=== PATIENT | female | born 1990 | race Caucasian/White ===

== ENCOUNTER 2018-02-02 13:14 | Inpatient (IN) ==
--- NOTE | 2018-02-02 13:18 | Emergency Department Note ---
Disposition Clinical Impression: Pyelonephritis, Weakness UTI (urinary tract infection) Qualifiers: Urinary tract infection type: acute pyelonephritis Qualified Code(s): N10 - Acute pyelonephritis Vomiting Qualifiers: Vomiting type: unspecified Vomiting Intractability: non-intractable Nausea presence: with nausea Qualified Code(s): R11.2 - Nausea with vomiting, unspecified Disposition: Admitted As Inpatient Condition: Fair Referrals: NONE,PCP [Primary Care Provider] - Forms: ED Satisfaction Letter Time of Disposition: 15:30 General Adult HPI - General Chief complaint: ED Nausea/Vomiting/Diarrhea Stated complaint: vomiting, uti symptoms Time Seen by Provider: 02/02/18 13:22 Source: patient, EMS Mode of arrival: EMS Limitations: no limitations Nursing Notes Reviewed: Yes Vital Signs Reviewed: Yes - History of Present Illness HPI Narrative: Patient presents with the primary complaint of "cannot stop puking". She relates this has been going on for 2 days and she is been vomiting is frequently is about every 30 minutes. She states this is been through the night as well. She has had a feeling of chills but no definite fever. She states she did have diarrhea yesterday morning but none since. She reports abdominal cramping and some pain in the suprapubic region and right lower quadrant. She has pains from here that radiated to both flanks. She is concern for urinary tract infection as she has been having frequency and burning for 2-3 days. With the persistent vomiting she has had some generalized malaise, weakness and dizziness. She concurrently notes that she has been exposed to "lots" of people who have had recent vomiting and diarrhea. She denies any concerned of food borne illness or recent antibiotics or travel. She has cough or shortness of breath. She relates that she is concerned that she is getting dehydrated or that her "kidneys are shutting down ". She denies any history of previous renal problems. She has a normal last menstrual period of 2-3 weeks ago states she has no concern for . She has had a cholecystectomy but denies any other abdominal procedures. Onset (ago): day(s) (2) Location: back, abdomen Radiation: back Pain Severity: moderate Quality: burning, aching, constant Consistency: constant Improves with: nothing Worsens with: movement (Vomiting) Associated symptoms: Reports: fever/chills (Chills), loss of appetite, malaise, nausea/vomiting, weakness. Denies: confusion, chest pain, cough, diaphoresis, headaches, rash, seizure, shortness of breath, syncope Treatments Prior to Arrival: none - Related Data Home Medications Medication Instructions Recorded Confirmed Donepezil HCl [Aricept] 10 mg PO HS 02/02/18 02/02/18 Ferrous Sulfate [Iron] 325 mg PO DAILY 02/02/18 02/02/18 Metoprolol [Lopressor] 100 mg PO BID 02/02/18 02/02/18 Simvastatin [Zocor] 40 mg PO HS 02/02/18 02/02/18 Triamterene/HCTZ 75/50mg [Maxzide] 1 each PO DAILY 02/02/18 02/02/18 hydroCHLOROthiazide 25 mg PO DAILY 02/02/18 02/02/18 [Hydrochlorothiazide] Previous Rx's Medication Instructions Recorded Metoclopramide [Reglan] 10 mg PO PRN PRN #30 tablet 10/16/17 Allergies Allergy/AdvReac Type Severity Reaction Status Date / Time cephalexin [From Keflex] Allergy Anaphylaxis Verified 10/22/17 22:01 Penicillins [PCN] Allergy Anaphylaxis Verified 10/22/17 22:01 tramadol [From Ultram] Allergy Anaphylaxis Verified 10/22/17 22:01 All systems ED: reviewed and negative except as stated. Past Medical History - Past Medical History Attestation: Yes The following information was validated with the patient. Source: patient, old records reviewed, nursing notes reviewed Medical history: Reports: asthma, other (Opiate dependence) Surgical history: Reports: cholecystectomy Psychiatric history: Reports: anxiety WEAVER HAND history: Reports: no WEAVER HAND history : 5 Para: 5 Ab: 0 - Social History Smoking Status: Current every day smoker Smokeless Tobacco Status: No Alcohol use: Reports: none Drug use: Reports: opiates (Currently on suboxone), marijuana Physical Exam - General Limitations: no limitations General appearance: alert, anxious, in distress (Tearful) - Head Head exam: atraumatic, normocephalic, normal inspection - Eye Eye exam: Present: normal appearance, PERRL, EOMI. Absent: scleral icterus, conjunctival injection - ENT ENT exam: normal exam, mucous membranes dry - Neck Neck exam: Present: normal inspection, full ROM, trachea midline - Chest Chest inspection: Present: normal inspection, symmetric chest wall rise - Respiratory Respiratory exam: Present: normal lung sounds bilaterally. Absent: respiratory distress, wheezes, prolonged expiratory phase - Cardiovascular Cardiovascular exam: Present: regular rate, normal rhythm, normal heart sounds - Abdominal Exam Abdominal exam: Present: soft, normal bowel sounds. Absent: distention, guarding, rebound, rigidity, psoas sign, obturator sign, heel tap sign, Villagran' s sign, Rovsing's sign, tenderness at McBurney's Point Abdominal tenderness: Present: suprapubic, mild - Extremities Exam Extremities exam: Present: normal inspection, full ROM, normal capillary refill. Absent: tenderness, pedal edema - Expanded Lower Extremity Exam Neurovascular/Tendon exam: Present: normal capillary refill. Absent: motor deficit, sensory deficit, tendon deficit Gait: observed and normal (Limited ambulation from the EMS cart to the triage chair.) - Back Exam Back exam: Present: normal inspection, full ROM, CVA tenderness (R), CVA tenderness (L). Absent: tenderness - Neurological Exam Neurological exam: Present: alert, oriented X3 - Psychiatric Psychiatric exam: Present: agitated, anxious - Skin Skin exam: Present: warm, dry, intact, normal color. Absent: cyanosis, diaphoresis, pallor Course Course Narrative: 1530: I have discussed care with the patient and all specimen with Dr. Mancini. She is significantly dry on her urinalysis with significant ketones and protein. She does have evidence for urinary tract infection with urinary symptoms and flank pain. I feel she will need continued hydration and IV antibiotic treatment. Verbal orders have been obtained for her observation period Vital Signs Temperature 98.5 F 02/02/18 13:23 Pulse Rate 94 02/02/18 13:23 Respiratory Rate 16 02/02/18 13:23 Blood Pressure 146/96 02/02/18 13:23 O2 Sat by Pulse Oximetry 96 02/02/18 13:23 Temperature 98.5 F 02/02/18 13:23 Pulse Rate 101 02/02/18 15:03 Respiratory Rate 16 02/02/18 15:03 Blood Pressure 145/103 02/02/18 15:03 O2 Sat by Pulse Oximetry 96 02/02/18 15:03 Oxygen Delivery Oxygen Delivery Room Air Medical Decision Making - Medical Records Medical records reviewed: Yes I reviewed the patient's medical records. - Lab Data Lab results reviewed: Yes I reviewed the patient's lab results. Result diagrams: 02/02/18 13:58 02/02/18 13:58 Lab Results 02/02/18 02/02/18 02/02/18 Range/Units 13:44 13:44 13:44 WBC (4.3-11.1) K/mcL RBC (3.82-4.97) M/mcL Hgb (11.5-15.4) g/dL Hct (35.3-44.9) % MCV (83.0-100.0) fL MCH (28.0-33.3) pg MCHC (31.6-35.5) g/dL RDW (11.5-14.5) % Plt Count (140-400) K/mcL MPV (9.4-12.4) fL Immature Gran % (0-4) % Seg Neutrophils % % Lymphocytes % % Monocytes % % Eosinophils % % Basophils % % Neutrophils # (1.6-8.9) K/mcL Lymphocytes # (0.6-4.6) K/mcL Monocytes # (0.0-1.3) K/mcL Eosinophils # (0.0-0.6) K/mcL Basophils # (0.0-0.2) K/mcL Sodium (136-145) mEq/L Potassium (3.5-5.1) mEq/L Chloride (98-107) mEq/L Carbon Dioxide (23-29) mEq/L BUN (6-20) mg/dL Creatinine (0.60-1.20) mg/dL Est GFR ( Amer) (> 60) Est GFR (Non-Af Amer) (> 60) BUN/Creatinine Ratio (6-26) Glucose (70-105) mg/dL Calculated Osmolality (280-300) Lactic Acid (0.5-2.2) mmol/L Calcium (8.6-10.3) mg/dL Total Bilirubin (0.3-1.0) mg/dL Direct Bilirubin (0.0-0.2) mg/dL Indirect Bilirubin (0.0-1.2) mg/dL AST (13-39) Units/L ALT (7-52) Units/L Alkaline Phosphatase (34-104) Units/L Serum Total Protein (6.4-8.9) g/dL Albumin (3.5-5.7) g/dL Globulin (2.4-3.5) g/dL Albumin/Globulin Ratio (1.1-2.2) Urine Color Yellow (Yellow) Urine Clarity Cloudy A (Clear) Urine pH 5.5 (5.0-8.0) pH Units Ur Specific [place] >= 1.030 H (1.010-1.025) Urine Protein >=300 H (Neg-Trace) mg/dL Urine Glucose (UA) Normal (Normal) mg/dL Urine Ketones >=160 H (Negative) mg/dL Urine Blood Moderate H (Negative) Urine Nitrite Positive A (Negative) Urine Bilirubin Negative (Negative) Urine Urobilinogen Normal (Normal) mg/dL Ur Leukocyte Esterase Negative (Negative) Urine Microscopic RBC 5-15 H (0-3) per hpf Urine Microscopic WBC 3-5 H (0-3) per hpf Ur Squamous Epith Cells Many H (None-Few) per lpf Urine Bacteria Many H (None-Few) per hpf Urine Mucus Many H (Few) Ur Culture Indicated? NO. A (NO) Urine Test Negative (Negative) Urine Opiates Screen Negative (Nzmbgl=137) ng/mL Ur Oxycodone Screen Negative (Cutoff= 100) ng/mL Ur Barbiturates Screen Negative (Mtakmf=943) ng/mL Ur Phencyclidine Scrn Negative (Cutoff=25) ng/mL Ur Amphetamines Screen Negative (Tviius=8590) ng/mL U Benzodiazepines Scrn Negative (Urdfqr=054) ng/mL Urine Cocaine Screen Negative (Cutoff= 300) ng/mL U Marijuana (THC) Screen Positive H (Cutoff = 50) ng/mL Ur Drug Screen Interp See Below 02/02/18 02/02/18 02/02/18 Range/Units 13:58 13:58 13:58 WBC 14.8 H (4.3-11.1) K/mcL RBC 5.03 H (3.82-4.97) M/mcL Hgb 14.6 (11.5-15.4) g/dL Hct 43.4 (35.3-44.9) % MCV 86.3 (83.0-100.0) fL MCH 29.0 (28.0-33.3) pg MCHC 33.6 (31.6-35.5) g/dL RDW 13.7 (11.5-14.5) % Plt Count 365 (140-400) K/mcL MPV 9.2 L (9.4-12.4) fL Immature Gran % 0.3 (0-4) % Seg Neutrophils % 86.6 % Lymphocytes % 10.7 % Monocytes % 2.2 % Eosinophils % 0.0 % Basophils % 0.2 % Neutrophils # 12.8 H (1.6-8.9) K/mcL Lymphocytes # 1.6 (0.6-4.6) K/mcL Monocytes # 0.3 (0.0-1.3) K/mcL Eosinophils # 0.0 (0.0-0.6) K/mcL Basophils # 0.0 (0.0-0.2) K/mcL Sodium 138 (136-145) mEq/L Potassium 3.8 (3.5-5.1) mEq/L Chloride 100 (98-107) mEq/L Carbon Dioxide 24 (23-29) mEq/L BUN 11 (6-20) mg/dL Creatinine 0.57 L (0.60-1.20) mg/dL Est GFR ( Amer) > 60 (> 60) Est GFR (Non-Af Amer) > 60 (> 60) BUN/Creatinine Ratio 19 (6-26) Glucose 130 H (70-105) mg/dL Calculated Osmolality 287 (280-300) Lactic Acid 1.1 (0.5-2.2) mmol/L Calcium 10.4 H (8.6-10.3) mg/dL Total Bilirubin 0.5 (0.3-1.0) mg/dL Direct Bilirubin 0.0 (0.0-0.2) mg/dL Indirect Bilirubin 0.5 (0.0-1.2) mg/dL AST 13 (13-39) Units/L ALT 8 (7-52) Units/L Alkaline Phosphatase 79 (34-104) Units/L Serum Total Protein 8.8 (6.4-8.9) g/dL Albumin 5.4 (3.5-5.7) g/dL Globulin 3.4 (2.4-3.5) g/dL Albumin/Globulin Ratio 1.6 (1.1-2.2) Urine Color (Yellow) Urine Clarity (Clear) Urine pH (5.0-8.0) pH Units Ur Specific [place] (1.010-1.025) Urine Protein (Neg-Trace) mg/dL Urine Glucose (UA) (Normal) mg/dL Urine Ketones (Negative) mg/dL Urine Blood (Negative) Urine Nitrite (Negative) Urine Bilirubin (Negative) Urine Urobilinogen (Normal) mg/dL Ur Leukocyte Esterase (Negative) Urine Microscopic RBC (0-3) per hpf Urine Microscopic WBC (0-3) per hpf Ur Squamous Epith Cells (None-Few) per lpf Urine Bacteria (None-Few) per hpf Urine Mucus (Few) Ur Culture Indicated? (NO) Urine Test (Negative) Urine Opiates Screen (Ldklxy=544) ng/mL Ur Oxycodone Screen (Cutoff= 100) ng/mL Ur Barbiturates Screen (Alvyhh=375) ng/mL Ur Phencyclidine Scrn (Cutoff=25) ng/mL Ur Amphetamines Screen (Yxkdww=2398) ng/mL U Benzodiazepines Scrn (Yrupak=664) ng/mL Urine Cocaine Screen (Cutoff= 300) ng/mL U Marijuana (THC) Screen (Cutoff = 50) ng/mL Ur Drug Screen Interp
[2018-02-02] MEDS ORDERED: Ketorolac 30 MG/ML VIAL IVP ONE (13:28)
[2018-02-02] MEDS ORDERED: Ondansetron 4 MG/2 ML VIAL IVP ONE (13:28)
[2018-02-02] MEDS ORDERED: 0.9 % Sodium Chloride 1,000 ML IVC ONE (13:28)
[2018-02-02] MEDS ORDERED: 0.9 % Sodium Chloride 1,000 ML IVC SCH (13:30)
[2018-02-02 13:59] LABS: Bilirubin,Urine Negative (Negative); Blood,Urine Moderate (Negative); Clarity,Urine Cloudy (Clear); Color,Urine Yellow (Yellow); Glucose,Urine (UA) Normal (Normal); Ketones,Urine >=160 mg/dL (Negative); Leukocyte Esterase,Urine Negative (Negative); Nitrite,Urine Positive (Negative); PH,Urine 5.5 pH Units (5.0-8.0); Protein,Urine >=300 mg/dL (Neg-Trace); Specific Gravity,Urine >= 1.030 (1.010-1.025); Urobilinogen,Urine Normal (Normal)
[2018-02-02 14:08] LABS: Basophils % 0.2 %; Hematocrit 43.4 % (35.3-44.9); Hemoglobin 14.6 g/dL (11.5-15.4); Immature Granulocytes % 0.3 % (0-4); Lymphocytes # 1.6 K/mcL (0.6-4.6); Lymphocytes % 10.7 %; Mean Corpuscular HGB Conc 33.6 g/dL (31.6-35.5); Mean Corpuscular Volume 86.3 fL (83.0-100.0); Mean Platelet Volume 9.2 fL (9.4-12.4); Monocytes # 0.3 K/mcL (0.0-1.3); Monocytes % 2.2 %; Neutrophils # 12.8 K/mcL (1.6-8.9); Platelet Count 365 K/mcL (140-400); Red Blood Count 5.03 M/mcL (3.82-4.97); Red Cell Distribution Width 13.7 % (11.5-14.5); Segmented Neutrophils % 86.6 %
[2018-02-02 14:08] LABS: Amphetamine Screen,Urine Negative ng/mL (Cutoff=1000); Barbiturate Screen,Urine Negative ng/mL (Cutoff=200); Benzodiazepines Screen,Urine Negative ng/mL (Cutoff=200); Cannabinoid Screen,Urine Positive ng/mL (Cutoff = 50); Cocaine Screen,Urine Negative ng/mL (Cutoff= 300); Opiate Screen,Urine Negative ng/mL (Cutoff=300); Phencyclidine Screen,Urine Negative ng/mL (Cutoff=25)
[2018-02-02 14:16] LABS: Bacteria,Urine Many per hpf (None-Few); Mucus,Urine Many (Few); Squamous Epithelial Cell,Urine Many per lpf (None-Few)
[2018-02-02 14:24] LABS: Alanine Aminotransferase 8 Units/L (7-52); Albumin 5.4 g/dL (3.5-5.7); Albumin/Globulin Ratio 1.6 (1.1-2.2); Alkaline Phosphatase 79 Units/L (34-104); Aspartate Amino Transferase 13 Units/L (13-39); BUN/Creatinine Ratio 19 (6-26); Bilirubin,Indirect 0.5 mg/dL (0.0-1.2); Bilirubin,Total 0.5 mg/dL (0.3-1.0); Blood Urea Nitrogen 11 mg/dL (6-20); Calcium 10.4 mg/dL (8.6-10.3); Carbon Dioxide 24 mEq/L (23-29); Chloride 100 mEq/L (98-107); Globulin 3.4 g/dL (2.4-3.5); Glucose 130 mg/dL (70-105); Osmolality,Calculated 287 (280-300); Potassium 3.8 mEq/L (3.5-5.1); Sodium 138 mEq/L (136-145); Total Protein 8.8 g/dL (6.4-8.9); eGFR For Non-African Americans > 60 (> 60)
[2018-02-02] MEDS ORDERED: *HR* Promethazine 25 MG/ML VIAL IVP ONE ×2 (16:52→17:39)
[2018-02-02] MEDS ORDERED: Naloxone 0.4 MG/ML INJ IVP PRN (17:39)
[2018-02-02] MEDS ORDERED: Promethazine 12.5 MG in 0.9 % Sodium Chloride 50 ML IVPB PRN (17:39)
[2018-02-02] MEDS ORDERED: Ondansetron ODT 4 MG TAB.RAPDIS SL ONE (17:39)
[2018-02-02] MEDS: 0.9 % Sodium Chloride 1,000 ML IVC SCH (18:09)
[2018-02-03] MEDS: 0.9 % Sodium Chloride 1,000 ML IVC SCH ×3 (00:05→11:42)
[2018-02-03] MEDS: *HR* Promethazine 25 MG/ML VIAL IVP PRN ×4 (00:14→17:55)
[2018-02-03] MEDS: Ibuprofen 400 MG TABLET PO PRN ×3 (00:18→21:29)
[2018-02-03] MEDS: Ondansetron 4 MG/2 ML VIAL IVP PRN ×3 (03:37→14:31)
[2018-02-03] MEDS ORDERED: *HR* Buprenorphine HCl 8 MG TAB.SUBL SL SCH (09:00)
--- NOTE | 2018-02-03 11:55 | Internal Med History&Physical ---
Date of Encounter: 02/03/18 Time of Encounter: 11:25 Assessment and Plan (1) Vomiting Current visit: Yes Status: Acute Probable acute gastroenteritis. IV fluids have been ordered and antiemetics will be given as needed. Qualifiers: Vomiting type: unspecified Vomiting Intractability: non-intractable Nausea presence: with nausea Qualified Code(s): R11.2 - Nausea with vomiting, unspecified (2) UTI (urinary tract infection) Current visit: Yes Status: Acute Equivocal evidence. She had significant bacteria but many squamous epithelial cells in urine sample. IV Cipro was ordered through emergency room. Qualifiers: Urinary tract infection type: acute pyelonephritis Qualified Code(s): N10 - Acute pyelonephritis Internal Medicine - H&P: HPI Chief complaint: Vomiting Admitted From: Emergency Dept Plans for Post Hospital Care: Home History of present illness: Ms. Rivas is a 27 year old female who came to emergency room complaining of abdominal discomfort and diarrhea onset the evening of January 30. The following day she had multiple episodes of vomiting with occasional bright red blood noted. The vomiting and abdominal discomfort persisted so February 01 she came to emergency room for evaluation. She was felt to have UTI and was admitted to [facility] floor for ongoing care needs. She states diarrhea has remained resolved but she still has abdominal pain and occasional vomiting. Denies previous similar episodes. She had cholecystectomy June 2012. She has had elevated LFTs during in the past. She denies hepatitis. She denies disorders of her exocrine pancreas. Past Med Surg Social Fam HX - Past Medical History Medical history: asthma, other Additional medical history: PT REFUSES TO GIVE PMH Psychiatric history: anxiety - Past Surgical History Surgical History: cholecystectomy Additional surgical history: wisdom teeth removed (2013) - Social History Smoking Status: Current every day smoker Smokeless Tobacco Status: No Alcohol use: none Drug use: opiates, marijuana - Family History Mother Family Member Ethnicity: Non- Living Status: Still Living Hx Family Cardiac Disorders: Yes (hypertension) Hx Family Respiratory Disorders: No Hx Family Cancer: Yes Hx Family GI Disorders: No Hx Family Endocrine Disorder: No Hx Family Neuromuscular Disorders: No Hx Family Neurologic Disorders: No Hx Family HEENT Disorders: No Hx Family Autoimmune Disorders: No Internal Medicine - H&P: Meds Buprenorphine HCl [Subutex] 12 mg SL DAILY 02/02/18 [History] DiphenhydraMINE [Benadryl] 25 mg PO HS 02/02/18 [History] 3 Allergy/AdvReac Type Severity Reaction Status Date / Time cephalexin [From Keflex] Allergy Anaphylaxis Verified 10/22/17 22:01 Penicillins [PCN] Allergy Anaphylaxis Verified 10/22/17 22:01 tramadol [From Ultram] Allergy Anaphylaxis Verified 10/22/17 22:01 All Systems PM: A 10-system review of systems was performed and is negative for pertinent findings except as documented above in the HPI. Review of systems: Gen.: She states her weight has been stable following delivery of her last child 3 months ago. Cardiovascular: She denies hypertension NH heart failure angina DVT or pulmonary embolism Respiratory: She has smoked since age 15 up to 2 packs per day. She claims a diagnosis of asthma. GI: As per history of present illness : She denies hematuria dysuria or kidney stones Neurologic: She has history of migraine headaches. She has had syncope in the past. She denies seizures. Endocrine: She denies diabetes thyroid disease or hyperlipidemia. Hematology/oncology: She denies blood disorders cancers or anemia Psychiatric: She has history of anxiety and depression and took medication from approximately age [age]. [place] skeletal: She denies arthritis gout or other bone joint or muscle disorders. - Constitutional Vitals: Temp Pulse Resp BP Pulse Ox 98.7 F 85 16 148/98 98 02/03/18 06:56 02/03/18 06:56 02/03/18 06:56 02/03/18 06:56 02/03/18 06:56 Exam: Gen.: She is a well-developed well-nourished female who appears in mild discomfort lying in bed HEENT: Head is atraumatic and normocephalic. Eyes: EOMI. There is no scleral icterus. Mouth: Mucosa is moist. Neck: Supple and nontender. There is no thyromegaly or adenopathy noted. Heart: Regular without murmurs gallops or ectopics Lungs: No wheezes or crackles are heard. Back: She has tenderness to flank percussion bilaterally Abdomen: Bowel sounds are diminished. There is minimal tenderness to palpation. No masses or guarding are noted. Extremities: There is no cyanosis edema or clubbing noted. Dorsalis pedis and posterior tibial pulses are 1-2 over 2 bilaterally. Neurologic: Mental status: She is talkative and a good historian. Cranial nerves: Smile is symmetric. Forehead wrinkles bilaterally. Tongue protrudes midline. EOMI. Motor: There is no pronator drift. Cerebellar: Finger to nose intact bilaterally. Skin: Warm and dry Internal Med - H&P Results - Labs CBC & Chem 7: 02/02/18 13:58 02/02/18 13:58
[2018-02-03] MEDS: 0.45 % Sodium Chloride w/KCl 20 MEQ/1,000 ML MLS IVC SCH (13:09)
[2018-02-03] MEDS: *HR* Buprenorphine HCl 8 MG TAB.SUBL SL SCH (17:44)
[2018-02-03] MEDS: Ondansetron ODT 4 MG TAB.RAPDIS SL PRN (21:29)
[2018-02-04] MEDS: *HR* Promethazine 25 MG/ML VIAL IVP PRN ×2 (00:02→10:12)
[2018-02-04] MEDS: 0.45 % Sodium Chloride w/KCl 20 MEQ/1,000 ML MLS IVC SCH ×2 (00:07→08:45)
[2018-02-04] MEDS: Ondansetron ODT 4 MG TAB.RAPDIS SL PRN ×2 (04:10→08:46)
[2018-02-04 06:46] LABS: Basophils % 0.4 %; Eosinophils # 0.3 K/mcL (0.0-0.6); Eosinophils % 3.4 %; Hematocrit 36.5 % (35.3-44.9); Hemoglobin 12.1 g/dL (11.5-15.4); Immature Granulocytes % 0.2 % (0-4); Lymphocytes # 3.6 K/mcL (0.6-4.6); Lymphocytes % 38.6 %; Mean Corpuscular HGB Conc 33.2 g/dL (31.6-35.5); Mean Corpuscular Hemoglobin 28.8 pg (28.0-33.3); Mean Corpuscular Volume 86.9 fL (83.0-100.0); Monocytes # 0.8 K/mcL (0.0-1.3); Monocytes % 8.5 %; Neutrophils # 4.6 K/mcL (1.6-8.9); Platelet Count 260 K/mcL (140-400); Red Cell Distribution Width 13.5 % (11.5-14.5); Segmented Neutrophils % 48.9 %
[2018-02-04 07:00] LABS: Alanine Aminotransferase 6 Units/L (7-52); Albumin 4.1 g/dL (3.5-5.7); Albumin/Globulin Ratio 1.6 (1.1-2.2); Alkaline Phosphatase 55 Units/L (34-104); Aspartate Amino Transferase 11 Units/L (13-39); BUN/Creatinine Ratio 24 (6-26); Bilirubin,Total 0.6 mg/dL (0.3-1.0); Blood Urea Nitrogen 11 mg/dL (6-20); Calcium 9.3 mg/dL (8.6-10.3); Carbon Dioxide 26 mEq/L (23-29); Chloride 101 mEq/L (98-107); Globulin 2.5 g/dL (2.4-3.5); Glucose 88 mg/dL (70-105); Lipase 13 Units/L (11-82); Magnesium 1.7 mg/dL (1.6-2.6); Osmolality,Calculated 279 (280-300); Potassium 3.5 mEq/L (3.5-5.1); Sodium 135 mEq/L (136-145); Total Protein 6.6 g/dL (6.4-8.9); eGFR For Non-African Americans > 60 (> 60)
[2018-02-04] MEDS: *HR* Buprenorphine HCl 8 MG TAB.SUBL SL SCH (08:46)
[2018-02-04] MEDS: Ibuprofen 400 MG TABLET PO PRN (10:12)
--- NOTE | 2018-02-04 14:55 | Discharge Summary ---
Date of Encounter: 02/04/18 Time of Encounter: 14:45 - Discharge Diagnosis (1) Acute gastroenteritis Priority: Primary Status: Acute (2) UTI (urinary tract infection) Priority: Secondary Status: Acute Qualifiers: Urinary tract infection type: acute pyelonephritis Qualified Code(s): N10 - Acute pyelonephritis Hospital course: Ms. Rivas is a 27 year old female who came to emergency room complaining of abdominal discomfort and diarrhea onset the evening of January 30. The following day she had multiple episodes of vomiting with occasional bright red blood noted. The vomiting and abdominal discomfort persisted so February 02 she came to emergency room for evaluation. She was felt to have UTI and was admitted to [facility] for ongoing care needs. Initial orders were written by the emergency room physician. I saw her on February 03 and performed a history and physical. IV fluids were ordered and anti-emetics were given as needed. Her vomiting lessened but had not resolved by time of discharge. WBC normalized to 9.4 with resolution of left shift by February 04. Diet was advanced to regular and she felt improved when I saw her on February 04 and wished to be discharged home. I encouraged her to find a local PCP. She will continue to follow with her substance abuse physician in the [place] area as directed. - Time Spent with Patient Total time spent providing and/or coordinating discharge services: - Discharge Medications Prescriptions: Ondansetron ODT [Zofran ODT] 4 mg SL Q4HR PRN #12 tab.rapdis PRN Reason: Nausea Home Medications: Buprenorphine HCl [Subutex] 12 mg SL DAILY 02/02/18 [History] DiphenhydraMINE [Benadryl] 25 mg PO HS 02/02/18 [History] Ondansetron ODT [Zofran ODT] 4 mg SL Q4HR PRN #12 tab.rapdis 02/04/18 [Rx] Allergies/Adverse Reactions: 3 Allergy/AdvReac Type Severity Reaction Status Date / Time cephalexin [From Keflex] Allergy Anaphylaxis Verified 10/22/17 22:01 Penicillins [PCN] Allergy Anaphylaxis Verified 10/22/17 22:01 tramadol [From Ultram] Allergy Anaphylaxis Verified 10/22/17 22:01 Date of admission: 02/03/18 17:25 Primary care physician: PCP NONE - Constitutional Vitals: Temp Pulse Resp BP Pulse Ox 98.4 F 108 14 127/84 97 02/04/18 11:47 02/04/18 11:47 02/04/18 11:47 02/04/18 11:47 02/04/18 11:47 - Patient Status Disposition: Home, Self-Care Condition: Fair - Discharge Instructions Follow Up With: NONE,PCP [Primary Care Provider] - 1 week - Diet and Activity Activity: resume usual activities as tolerated Diet: advance to your usual diet
[2018-02-04 15:10] VITALS: BP 118/83
== END 2018-02-04 16:29 | disposition home or self-care (01) | DRG 690 ==
LOC: EMEROOPIK 13:14 → INPPIK 13:14
PROVIDERS: ADMIT Internal Medicine; ATTEND Internal Medicine

== ENCOUNTER 2018-02-08 19:36 | Observation (INO) ==
[2018-02-08] MEDS ORDERED: 0.9 % Sodium Chloride 1,000 ML IVC ONE (19:45)
--- NOTE | 2018-02-08 19:46 | Emergency Department Note ---
Disposition Clinical Impression: Acute drug withdrawal syndrome, Nausea & vomiting Disposition: Home, Self-Care Condition: Good Time of Disposition: 22:08 General Adult HPI - General Chief complaint: ED General Medical Stated complaint: NAUSEA AND VOMITING Time Seen by Provider: 02/08/18 19:42 Source: patient Mode of arrival: ambulatory Limitations: no limitations Nursing Notes Reviewed: Yes Vital Signs Reviewed: Yes - History of Present Illness HPI Narrative: Patient presents with nausea and vomiting. She is out of her Subutex. She was admitted to the hospital for urinary tract infection and was on Subutex while she was here. She did not have anymore when she got home and she has been vomiting since then. She denies any difficulty urinating. There is been no fevers or chills. Onset (ago): day(s) (4) Location: abdomen Radiation: non-radiation Pain Scale: 0 Consistency: constant Improves with: nothing Worsens with: nothing Associated symptoms: Reports: nausea/vomiting - Related Data Home Medications Medication Instructions Recorded Confirmed Buprenorphine HCl [Subutex] 12 mg SL DAILY 02/02/18 02/08/18 DiphenhydraMINE [Benadryl] 25 mg PO HS 02/02/18 02/08/18 Previous Rx's Medication Instructions Recorded Ondansetron ODT [Zofran ODT] 4 mg SL Q4HR PRN #12 tab.rapdis 02/04/18 Ondansetron ODT [Zofran ODT] 4 mg SL Q4HR PRN #15 tab.rapdis 02/08/18 Allergies Allergy/AdvReac Type Severity Reaction Status Date / Time cephalexin [From Keflex] Allergy Anaphylaxis Verified 02/08/18 19:39 Penicillins [PCN] Allergy Anaphylaxis Verified 02/08/18 19:39 tramadol [From Ultram] Allergy Anaphylaxis Verified 02/08/18 19:39 All systems ED: reviewed and negative except as stated. Review of Systems: As Per HPI Constitutional: Denies: fever, chills, weakness, weight change Eyes: Denies: eye pain, eye discharge, vision change ENT ED: Denies: ear pain, throat pain, dental pain, hearing loss, epistaxis, congestion, dysphagia Cardiovascular: Denies: chest pain, palpitations, dyspnea on exertion, edema, syncope Respiratory: Denies: cough, dyspnea, wheezes, hemoptysis, stridor Gastrointestinal: Reports: as per HPI, nausea, vomiting Genitourinary: Denies: dysuria, frequency, hematuria, discharge Musculoskeletal: Denies: back pain, neck pain, arthralgia, myalgia Integumentary: Denies: rash, abrasion, lesions Neurological: Denies: headache, weakness, numbness, paresthesias, confusion, abnormal gait, vertigo Psychiatric: Denies: anxiety, depression, suicidal thoughts, homicidal thoughts , auditory hallucinations, visual hallucinations Endocrine: Denies: fatigue Hematological/Lymphatic: Denies: easy bleeding, easy bruising Allergic/Immunologic: Denies: facial swelling, urticaria Past Medical History - Past Medical History Attestation: Yes The following information was validated with the patient. Source: patient, nursing notes reviewed Medical history: Reports: asthma, other Surgical history: Reports: cholecystectomy Psychiatric history: Reports: anxiety [employer] history: Reports: no [employer] history - Social History Smoking Status: Current every day smoker Smokeless Tobacco Status: No Alcohol use: Reports: none Drug use: Reports: opiates, marijuana Physical Exam - General Limitations: no limitations General appearance: alert, in no apparent distress - Head Head exam: atraumatic, normocephalic, normal inspection - Eye Eye exam: Present: normal appearance, PERRL, EOMI - ENT ENT exam: normal exam, normal oropharynx, mucous membranes moist - Neck Neck exam: Present: normal inspection, full ROM, trachea midline - Chest Chest inspection: Present: normal inspection, symmetric chest wall rise - Respiratory Respiratory exam: Present: normal lung sounds bilaterally - Cardiovascular Cardiovascular exam: Present: regular rate, normal rhythm, normal heart sounds - Abdominal Exam Abdominal exam: Present: soft, Non-Tender, normal bowel sounds. Absent: tenderness, distention, guarding, rebound, rigidity - Extremities Exam Extremities exam: Present: normal inspection - Back Exam Back exam: Present: normal inspection - Neurological Exam Neurological exam: Present: alert, oriented X3 - Psychiatric Psychiatric exam: Present: normal affect, normal mood - Skin Skin exam: Present: warm, dry, intact Course Vital Signs Temperature 97.7 F 02/08/18 19:41 Pulse Rate 63 02/08/18 19:41 Respiratory Rate 20 02/08/18 19:41 Blood Pressure 170/109 02/08/18 19:41 O2 Sat by Pulse Oximetry 98 02/08/18 19:41 Temperature 99.2 F 02/09/18 06:42 Pulse Rate 85 02/09/18 06:42 Respiratory Rate 14 02/09/18 06:42 Blood Pressure 151/92 02/09/18 06:42 O2 Sat by Pulse Oximetry 100 02/09/18 06:42 Oxygen Delivery Oxygen Delivery Room Air Medical Decision Making - MDM Narrative Medical decision making narrative: I reviewed the patient's medication list In spite of the patient's nausea and vomiting at home she has normal laboratory studies and is not dehydrated. She is given an additional liter of fluid plus Phenergan and Zofran and she is really not vomited much since that time however she insists she needs to stay in the hospital. The case was - Lab Data Lab results reviewed: Yes I reviewed the patient's lab results. Result diagrams: 02/09/18 05:57 02/08/18 20:13 Lab Results 02/08/18 02/08/18 02/08/18 Range/Units 20:13 20:13 21:27 WBC 15.2 H D (4.3-11.1) K/mcL RBC 4.59 (3.82-4.97) M/mcL Hgb 13.7 D (11.5-15.4) g/dL Hct 40.2 (35.3-44.9) % MCV 87.6 (83.0-100.0) fL MCH 29.8 (28.0-33.3) pg MCHC 34.1 (31.6-35.5) g/dL RDW 13.3 (11.5-14.5) % Plt Count 345 (140-400) K/mcL MPV 9.2 L (9.4-12.4) fL Immature Gran % 0.4 (0-4) % Seg Neutrophils % 87.3 % Lymphocytes % 9.9 % Monocytes % 1.8 % Eosinophils % 0.2 % Basophils % 0.4 % Neutrophils # 13.3 H (1.6-8.9) K/mcL Lymphocytes # 1.5 (0.6-4.6) K/mcL Monocytes # 0.3 (0.0-1.3) K/mcL Eosinophils # 0.0 (0.0-0.6) K/mcL Basophils # 0.1 (0.0-0.2) K/mcL Sodium 137 (136-145) mEq/L Potassium 3.8 (3.5-5.1) mEq/L Chloride 103 (98-107) mEq/L Carbon Dioxide 24 (23-29) mEq/L BUN 9 (6-20) mg/dL Creatinine 0.49 L (0.60-1.20) mg/dL Est GFR ( Amer) > 60 (> 60) Est GFR (Non-Af Amer) > 60 (> 60) BUN/Creatinine Ratio 18 (6-26) Glucose 144 H (70-105) mg/dL Calculated Osmolality 285 (280-300) Calcium 9.7 (8.6-10.3) mg/dL Urine Color Yellow (Yellow) Urine Clarity Clear (Clear) Urine pH 7.5 (5.0-8.0) pH Units Ur Specific [place] 1.025 (1.010-1.025) Urine Protein 30 H (Neg-Trace) mg/dL Urine Glucose (UA) Normal (Normal) mg/dL Urine Ketones Negative (Negative) mg/dL Urine Blood Negative (Negative) Urine Nitrite Negative (Negative) Urine Bilirubin Negative (Negative) Urine Urobilinogen Normal (Normal) mg/dL Ur Leukocyte Esterase Negative (Negative) Urine Microscopic WBC 0-3 (0-3) per hpf Ur Squamous Epith Cells Few (None-Few) per lpf Ur Renal Epithelial Cell Few (None-Few) per hpf Urine Mucus Few (Few) Ur Culture Indicated? NO (NO) Urine Test (Negative) 02/08/18 Range/Units 21:27 WBC (4.3-11.1) K/mcL RBC (3.82-4.97) M/mcL Hgb (11.5-15.4) g/dL Hct (35.3-44.9) % MCV (83.0-100.0) fL MCH (28.0-33.3) pg MCHC (31.6-35.5) g/dL RDW (11.5-14.5) % Plt Count (140-400) K/mcL MPV (9.4-12.4) fL Immature Gran % (0-4) % Seg Neutrophils % % Lymphocytes % % Monocytes % % Eosinophils % % Basophils % % Neutrophils # (1.6-8.9) K/mcL Lymphocytes # (0.6-4.6) K/mcL Monocytes # (0.0-1.3) K/mcL Eosinophils # (0.0-0.6) K/mcL Basophils # (0.0-0.2) K/mcL Sodium (136-145) mEq/L Potassium (3.5-5.1) mEq/L Chloride (98-107) mEq/L Carbon Dioxide (23-29) mEq/L BUN (6-20) mg/dL Creatinine (0.60-1.20) mg/dL Est GFR ( Amer) (> 60) Est GFR (Non-Af Amer) (> 60) BUN/Creatinine Ratio (6-26) Glucose (70-105) mg/dL Calculated Osmolality (280-300) Calcium (8.6-10.3) mg/dL Urine Color (Yellow) Urine Clarity (Clear) Urine pH (5.0-8.0) pH Units Ur Specific Crapo (1.010-1.025) Urine Protein (Neg-Trace) mg/dL Urine Glucose (UA) (Normal) mg/dL Urine Ketones (Negative) mg/dL Urine Blood (Negative) Urine Nitrite (Negative) Urine Bilirubin (Negative) Urine Urobilinogen (Normal) mg/dL Ur Leukocyte Esterase (Negative) Urine Microscopic WBC (0-3) per hpf Ur Squamous Epith Cells (None-Few) per lpf Ur Renal Epithelial Cell (None-Few) per hpf Urine Mucus (Few) Ur Culture Indicated? (NO) Urine Test Negative (Negative)
[2018-02-08] MEDS ORDERED: *HR* Promethazine 25 MG/ML VIAL IM ONE (20:00)
[2018-02-08 20:21] LABS: Basophils # 0.1 K/mcL (0.0-0.2); Basophils % 0.4 %; Eosinophils % 0.2 %; Hematocrit 40.2 % (35.3-44.9); Hemoglobin 13.7 g/dL (11.5-15.4); Immature Granulocytes % 0.4 % (0-4); Lymphocytes # 1.5 K/mcL (0.6-4.6); Lymphocytes % 9.9 %; Mean Corpuscular HGB Conc 34.1 g/dL (31.6-35.5); Mean Corpuscular Hemoglobin 29.8 pg (28.0-33.3); Mean Corpuscular Volume 87.6 fL (83.0-100.0); Mean Platelet Volume 9.2 fL (9.4-12.4); Monocytes # 0.3 K/mcL (0.0-1.3); Monocytes % 1.8 %; Neutrophils # 13.3 K/mcL (1.6-8.9); Platelet Count 345 K/mcL (140-400); Red Blood Count 4.59 M/mcL (3.82-4.97); Red Cell Distribution Width 13.3 % (11.5-14.5); Segmented Neutrophils % 87.3 %
[2018-02-08 20:55] LABS: BUN/Creatinine Ratio 18 (6-26); Blood Urea Nitrogen 9 mg/dL (6-20); Calcium 9.7 mg/dL (8.6-10.3); Carbon Dioxide 24 mEq/L (23-29); Chloride 103 mEq/L (98-107); Glucose 144 mg/dL (70-105); Osmolality,Calculated 285 (280-300); Potassium 3.8 mEq/L (3.5-5.1); Sodium 137 mEq/L (136-145); eGFR For Non-African Americans > 60 (> 60)
[2018-02-08] MEDS ORDERED: Ondansetron ODT 4 MG TAB.RAPDIS SL ONE (21:14)
[2018-02-08 21:32] LABS: Bilirubin,Urine Negative (Negative); Blood,Urine Negative (Negative); Clarity,Urine Clear (Clear); Color,Urine Yellow (Yellow); Glucose,Urine (UA) Normal (Normal); Ketones,Urine Negative (Negative); Leukocyte Esterase,Urine Negative (Negative); Nitrite,Urine Negative (Negative); PH,Urine 7.5 pH Units (5.0-8.0); Protein,Urine 30 mg/dL (Neg-Trace); Specific Gravity,Urine 1.025 (1.010-1.025); Urobilinogen,Urine Normal (Normal)
[2018-02-08 21:39] LABS: Mucus,Urine Few (Few); Renal Epithelial Cells,Urine Few per hpf (None-Few); Squamous Epithelial Cell,Urine Few per lpf (None-Few); WBC,Urine 0-3 per hpf (0-3)
[2018-02-08] MEDS: *HR* Promethazine 25 MG/ML VIAL IVP ONE (21:47)
[2018-02-09] MEDS ORDERED: *HR* Promethazine 25 MG/ML VIAL IVP ONE (00:06)
[2018-02-09] MEDS: *HR* Promethazine 25 MG/ML VIAL IVP ONE (00:15)
[2018-02-09] MEDS ORDERED: Ondansetron 4 MG/2 ML VIAL IVP PRN (00:48)
[2018-02-09] MEDS ORDERED: Naloxone 0.4 MG/ML INJ IVP PRN (00:48)
[2018-02-09] MEDS ORDERED: *HR* Promethazine 25 MG/ML VIAL IVP PRN (00:48)
[2018-02-09] MEDS ORDERED: 0.9 % Sodium Chloride 1,000 ML IVC SCH (00:48)
[2018-02-09 06:58] LABS: Basophils # 0.1 K/mcL (0.0-0.2); Basophils % 0.3 %; Hematocrit 42.8 % (35.3-44.9); Hemoglobin 14.4 g/dL (11.5-15.4); Immature Granulocytes % 0.6 % (0-4); Lymphocytes # 2.2 K/mcL (0.6-4.6); Lymphocytes % 11.8 %; Mean Corpuscular HGB Conc 33.6 g/dL (31.6-35.5); Mean Corpuscular Hemoglobin 29.2 pg (28.0-33.3); Mean Corpuscular Volume 86.8 fL (83.0-100.0); Mean Platelet Volume 9.7 fL (9.4-12.4); Monocytes # 0.7 K/mcL (0.0-1.3); Monocytes % 3.8 %; Platelet Count 378 K/mcL (140-400); Red Blood Count 4.93 M/mcL (3.82-4.97); Red Cell Distribution Width 13.3 % (11.5-14.5); Segmented Neutrophils % 83.5 %
[2018-02-09 07:02] LABS: Neutrophils # 15.5 K/mcL (1.6-8.9)
[2018-02-09 07:58] LABS: BUN/Creatinine Ratio 11 (6-26); Blood Urea Nitrogen 5 mg/dL (6-20); Calcium 9.7 mg/dL (8.6-10.3); Carbon Dioxide 23 mEq/L (23-29); Chloride 101 mEq/L (98-107); Glucose 125 mg/dL (70-105); Osmolality,Calculated 287 (280-300); Potassium 3.5 mEq/L (3.5-5.1); Sodium 139 mEq/L (136-145); eGFR For Non-African Americans > 60 (> 60)
[2018-02-09] MEDS: *HR* Promethazine 25 MG/ML VIAL IVP PRN ×4 (09:52→22:09)
--- NOTE | 2018-02-09 11:28 | Internal Med History&Physical ---
Date of Encounter: 02/09/18 Time of Encounter: 10:50 Assessment and Plan (1) Nausea & vomiting Current visit: Yes Status: Acute Suspect due to Subutex withdrawal with possible superimposed acute gastroenteritis. IV fluids and antiemetics will be ordered. Further workup will be done as needed. I spoke with the [facility] ) where she obtains Subutex. They report her last visit was January 20 with return date required February 03. She was hospitalized that day at [facility] and could not return for the necessary visit. The visit was rescheduled for February 08 but she returned to [facility] emergency room that day. Facility agreed that discharge summaries could be faxed from previous visit and present visit and patient could be seen for follow-up 02/11/2018 and receive ongoing prescription for Subutex. Qualifiers: Vomiting type: unspecified Qualified Code(s): R11.2 - Nausea with vomiting , unspecified Internal Medicine - H&P: HPI Chief complaint: Vomiting Admitted From: Emergency Dept Plans for Post Hospital Care: Home History of present illness: Ms. Rivas is a 27 year old female who came to emergency room stating she had onset of vomiting February 06. She had been discharged from [facility] February 04 after admission for vomiting. She was felt to possibly have acute gastroenteritis. WBC and left shift normalized by day of discharge. She states upon discharge she had no ongoing supply of Subutex that she obtains from a [facility] clinic. She reports getting a 2 week supply at each follow-up visit but was unable to make her last scheduled appointment. The appointment was rescheduled for February 08 but she felt unable to make the trip because of vomiting. She came to emergency room instead and was admitted to [facility] floor for ongoing care needs. Past Med Surg Social Fam HX - Past Medical History Medical history: asthma, other Additional medical history: PER PT ON THIS DATE STATES WAS TAKING PAIN PILLS FOR YEARS AND THEN WANTED TO STOP TAKING PAIN PILLS AND WAS PUT ON SUBUTEX OVER A YEAR AGO. Psychiatric history: anxiety - Past Surgical History Surgical History: cholecystectomy Additional surgical history: wisdom teeth removed (2013) - Social History Smoking Status: Current every day smoker Smokeless Tobacco Status: No Alcohol use: none Drug use: opiates, marijuana - Family History Mother Family Member Ethnicity: Non- Living Status: Still Living Hx Family Cardiac Disorders: Yes (hypertension) Hx Family Respiratory Disorders: No Hx Family Cancer: Yes Hx Family GI Disorders: No Hx Family Endocrine Disorder: No Hx Family Neuromuscular Disorders: No Hx Family Neurologic Disorders: No Hx Family HEENT Disorders: No Hx Family Autoimmune Disorders: No Internal Medicine - H&P: Meds Buprenorphine HCl [Subutex] 12 mg SL DAILY 02/02/18 [History] DiphenhydraMINE [Benadryl] 25 mg PO HS 02/02/18 [History] Ondansetron ODT [Zofran ODT] 4 mg SL Q4HR PRN #12 tab.rapdis 02/04/18 [Rx] Ondansetron ODT [Zofran ODT] 4 mg SL Q4HR PRN #15 tab.rapdis 02/08/18 [Rx] 3 Allergy/AdvReac Type Severity Reaction Status Date / Time cephalexin [From Keflex] Allergy Anaphylaxis Verified 02/08/18 19:39 Penicillins [PCN] Allergy Anaphylaxis Verified 02/08/18 19:39 tramadol [From Ultram] Allergy Anaphylaxis Verified 02/08/18 19:39 All Systems PM: A 10-system review of systems was performed and is negative for pertinent findings except as documented above in the HPI. Review of systems: Gen.: She states her weight has been stable following delivery of her last child 3 months ago. Cardiovascular: She denies hypertension MT heart failure angina DVT or pulmonary embolism Respiratory: She has smoked since age 15 up to 2 packs per day. She claims a diagnosis of asthma. GI: She had cholecystectomy June 2012 and elevated LFTs during her a few months ago. She denies hepatitis. She denies other disorders of her liver or exocrine pancreas. : She denies hematuria dysuria or kidney stones Neurologic: She has history of migraine headaches. She has had syncope in the past. She denies seizures. Endocrine: She denies diabetes thyroid disease or hyperlipidemia. Hematology/oncology: She denies blood disorders cancers or anemia Psychiatric: She has history of anxiety and depression and took medication from approximately age [age]. [place] skeletal: She denies arthritis gout or other bone joint or muscle disorders. - Constitutional Vitals: Temp Pulse Resp BP Pulse Ox 99.2 F 85 14 151/92 100 02/09/18 06:42 02/09/18 06:42 02/09/18 06:42 02/09/18 06:42 02/09/18 06:42 Exam: Gen.: She is a well-developed well-nourished female lying in bed who appears nauseated and uncomfortable HEENT: Head is atraumatic and normocephalic. Eyes: EOMI. There is no scleral icterus. Mouth: Mucosa is moist. Neck: Supple and nontender. There is no thyromegaly or adenopathy noted. Heart: Regular without murmurs gallops or ectopics Lungs: No wheezes or crackles are heard. Abdomen: Bowel sounds are markedly diminished. The abdomen has minimal tenderness to palpation. Extremities: There is no cyanosis edema or clubbing noted. Dorsalis pedis and posterior tibial pulses are 1-2 over 2 bilaterally. Neurologic: Mental status: She is able to answer questions appropriately but appears uncomfortable. Cranial nerves: Smile is symmetric. Forehead wrinkles bilaterally. Tongue protrudes midline. EOMI. Motor: There is no pronator drift. Cerebellar: Finger to nose is intact bilaterally. Skin: Warm and dry. She has multiple tattoos. Internal Med - H&P Results - Labs CBC & Chem 7: 02/09/18 05:57 02/09/18 05:57 Labs: Short CBC 02/09/18 Range/Units 05:57 WBC 18.6 H (4.3-11.1) K/mcL Hgb 14.4 (11.5-15.4) g/dL Hct 42.8 (35.3-44.9) % Plt Count 378 (140-400) K/mcL Neutrophils # 15.5 H (1.6-8.9) K/mcL BMP 02/09/18 05:57 Sodium 139 Potassium 3.5 Chloride 101 Carbon Dioxide 23 BUN 5 L Creatinine 0.46 L Glucose 125 H Calcium 9.7 - Impressions ITS Impressions Chest X-Ray 02/09/18 07:23 IMPRESSION: No acute cardiopulmonary process. D/ / 02/09/2018 08:49:35 Jone Longoria MD / jennifer Interpreting Provider: Jone Longoria MD
[2018-02-09] MEDS: 0.9 % Sodium Chloride w KCl 20 MEQ/1,000 ML MLS IVC SCH (13:08)
[2018-02-09] MEDS: Ondansetron 4 MG/2 ML VIAL IVP PRN (19:05)
[2018-02-09] MEDS: *HR* Buprenorphine HCl 8 MG TAB.SUBL SL SCH (19:39)
[2018-02-10] MEDS: 0.9 % Sodium Chloride w KCl 20 MEQ/1,000 ML MLS IVC SCH ×3 (01:54→20:11)
[2018-02-10] MEDS: Ondansetron 4 MG/2 ML VIAL IVP PRN ×4 (03:17→19:40)
[2018-02-10] MEDS: *HR* Promethazine 25 MG/ML VIAL IVP PRN ×4 (04:48→22:00)
[2018-02-10] MEDS: Ibuprofen 600 MG TABLET PO PRN ×2 (04:48→16:57)
[2018-02-10 06:48] LABS: Basophils # 0.1 K/mcL (0.0-0.2); Basophils % 0.5 %; Eosinophils # 0.2 K/mcL (0.0-0.6); Eosinophils % 1.4 %; Hematocrit 39.2 % (35.3-44.9); Hemoglobin 13.2 g/dL (11.5-15.4); Immature Granulocytes % 0.4 % (0-4); Lymphocytes # 4.3 K/mcL (0.6-4.6); Lymphocytes % 32.3 %; Mean Corpuscular HGB Conc 33.7 g/dL (31.6-35.5); Mean Corpuscular Hemoglobin 29.3 pg (28.0-33.3); Mean Corpuscular Volume 86.9 fL (83.0-100.0); Mean Platelet Volume 9.6 fL (9.4-12.4); Monocytes # 1.1 K/mcL (0.0-1.3); Monocytes % 8.1 %; Neutrophils # 7.6 K/mcL (1.6-8.9); Platelet Count 350 K/mcL (140-400); Red Blood Count 4.51 M/mcL (3.82-4.97); Red Cell Distribution Width 13.5 % (11.5-14.5); Segmented Neutrophils % 57.3 %
[2018-02-10 07:15] LABS: BUN/Creatinine Ratio 18 (6-26); Blood Urea Nitrogen 9 mg/dL (6-20); Calcium 9.4 mg/dL (8.6-10.3); Carbon Dioxide 25 mEq/L (23-29); Chloride 106 mEq/L (98-107); Glucose 100 mg/dL (70-105); Osmolality,Calculated 291 (280-300); Potassium 3.5 mEq/L (3.5-5.1); Sodium 141 mEq/L (136-145); eGFR For Non-African Americans > 60 (> 60)
[2018-02-10] MEDS: *HR* Buprenorphine HCl 8 MG TAB.SUBL SL SCH (08:22)
--- NOTE | 2018-02-10 11:12 | Internal Med Progress Note ---
Date of Encounter: 02/10/18 Time of Encounter: 11:00 - Assessment and plan (1) Nausea & vomiting Current Visit: Yes Status: Acute Assessment and plan: February 10. Continue IV fluids and anti-emetics. She will likely be discharged tomorrow and a follow-up with the [place] branch of her recovery Center on 02/12/2018 at 2 PM. Qualifiers: Vomiting type: unspecified Qualified Code(s): R11.2 - Nausea with vomiting , unspecified - Subjective Interval history: February 10. She has no new complaints and feels better. - Constitutional Vitals: Temp Pulse Resp BP Pulse Ox 98.4 F 88 16 127/79 97 02/10/18 06:40 02/10/18 06:40 02/10/18 06:40 02/10/18 06:40 02/10/18 06:40 Exam: She is resting comfortably in bed and appears in no acute distress. Her affect is overall cheerful. I reviewed her medications and lab results. Internal Medicine: Result - Labs CBC & Chem 7: 02/10/18 05:37 02/10/18 05:37 Labs: Short CBC 02/10/18 Range/Units 05:37 WBC 13.3 H (4.3-11.1) K/mcL Hgb 13.2 (11.5-15.4) g/dL Hct 39.2 (35.3-44.9) % Plt Count 350 (140-400) K/mcL Neutrophils # 7.6 (1.6-8.9) K/mcL BMP 02/10/18 05:37 Sodium 141 Potassium 3.5 Chloride 106 Carbon Dioxide 25 BUN 9 Creatinine 0.51 L Glucose 100 Calcium 9.4 - Impressions Impressions Chest X-Ray 02/09/18 07:23 IMPRESSION: No acute cardiopulmonary process. D/ / 02/09/2018 08:49:35 Jone Longoria MD / jennifer Interpreting Provider: Jone Longoria MD Consult Discharge Plan - Plan Referrals: NONE,PCP [Primary Care Provider] - 1 week
[2018-02-11] MEDS: Ondansetron 4 MG/2 ML VIAL IVP PRN ×2 (02:05→06:27)
[2018-02-11] MEDS: *HR* Promethazine 25 MG/ML VIAL IVP PRN ×2 (03:43→08:57)
[2018-02-11 06:22] LABS: Basophils % 0.5 %; Eosinophils # 0.5 K/mcL (0.0-0.6); Eosinophils % 6.6 %; Immature Granulocytes % 0.2 % (0-4); Lymphocytes # 3.4 K/mcL (0.6-4.6); Lymphocytes % 42.4 %; Mean Corpuscular HGB Conc 33.3 g/dL (31.6-35.5); Mean Corpuscular Hemoglobin 29.3 pg (28.0-33.3); Mean Platelet Volume 9.3 fL (9.4-12.4); Monocytes # 0.6 K/mcL (0.0-1.3); Monocytes % 7.5 %; Neutrophils # 3.5 K/mcL (1.6-8.9); Platelet Count 259 K/mcL (140-400); Red Blood Count 3.75 M/mcL (3.82-4.97); Red Cell Distribution Width 13.4 % (11.5-14.5); Segmented Neutrophils % 42.8 %
[2018-02-11 06:38] VITALS: BP 122/76
[2018-02-11] MEDS: 0.9 % Sodium Chloride w KCl 20 MEQ/1,000 ML MLS IVC SCH (06:41)
[2018-02-11] MEDS: *HR* Buprenorphine HCl 8 MG TAB.SUBL SL SCH (08:56)
--- NOTE | 2018-02-11 09:48 | Discharge Summary ---
Orders not resulted at time of discharge: Pending orders 02/09/18 08:55 Culture,Blood [BC] Routine Date of Encounter: 02/11/18 Time of Encounter: 09:40 - Discharge Diagnosis (1) Nausea & vomiting Priority: Primary Status: Acute Qualifiers: Vomiting type: unspecified Qualified Code(s): R11.2 - Nausea with vomiting , unspecified Hospital course: Ms. Rivas is a 27 year old female who came to emergency room stating she had onset of vomiting February 06. She had been discharged from [facility] February 04 after admission for vomiting. She was felt to possibly have acute gastroenteritis. WBC and left shift normalized by day of discharge. She states upon discharge she had no ongoing supply of Subutex that she obtains from a [facility] recovery clinic. She reports getting a 2 week supply at each follow-up visit but was unable to make her last scheduled appointment. The appointment was rescheduled for February 08 but she felt unable to make the trip because of vomiting. She came to emergency room instead and was admitted to [facility] for ongoing care needs. Initial orders were written by the emergency room physician. I saw her on February 09 and performed the history and physical. She was given IV fluids and was ordered anti-emetics on a prn basis. She made significant clinical improvement with WBC and left shift normalizing by day of discharge. She had not vomited for over 8 hours when I saw her on February 11. She felt she was stable for discharge home. She had adequate intake of food and fluids. I told her if vomiting persisted she should have her PCP evaluate and refer to a spa associate as needed. She will follow with [facility] in [place] within 1 week. She will go to recovery Center branch office at [facility] tomorrow for prescription refill for Subutex. - Time Spent with Patient Total time spent providing and/or coordinating discharge services: - Discharge Medications Home Medications: Buprenorphine HCl [Subutex] 12 mg SL DAILY 02/02/18 [History] DiphenhydraMINE [Benadryl] 25 mg PO HS 02/02/18 [History] Ondansetron ODT [Zofran ODT] 4 mg SL Q4HR PRN #12 tab.rapdis 02/04/18 [Rx] Ondansetron ODT [Zofran ODT] 4 mg SL Q4HR PRN #15 tab.rapdis 02/08/18 [Rx] Allergies/Adverse Reactions: 3 Allergy/AdvReac Type Severity Reaction Status Date / Time cephalexin [From Keflex] Allergy Anaphylaxis Verified 02/08/18 19:39 Penicillins [PCN] Allergy Anaphylaxis Verified 02/08/18 19:39 tramadol [From Ultram] Allergy Anaphylaxis Verified 02/08/18 19:39 Date of admission: 02/09/18 00:25 Primary care physician: PCP NONE - Constitutional Vitals: Temp Pulse Resp BP Pulse Ox 97.8 F 75 16 122/76 98 02/11/18 06:36 02/11/18 06:36 02/11/18 06:36 02/11/18 06:36 02/11/18 06:36 - Patient Status Disposition: Home, Self-Care Condition: Good - Discharge Instructions Follow Up With: Jessika Ruiz, [employer] [Advanced Practice Nurse] - 1 week - Diet and Activity Activity: resume usual activities as tolerated Diet: advance to your usual diet
== END 2018-02-11 12:10 | disposition home or self-care (01) ==
LOC: EMEROOPIK 19:36 → INPPIK 19:36
PROVIDERS: ADMIT Internal Medicine; ATTEND Internal Medicine

== ENCOUNTER 2018-04-04 17:11 | Observation (INO) ==
[2018-04-04] MEDS ORDERED: Ammonia Inhalant AMPUL ONE (17:26)
[2018-04-04] MEDS ORDERED: Ondansetron 4 MG/2 ML VIAL IVP ONE (18:07)
[2018-04-04] MEDS ORDERED: 0.9 % Sodium Chloride 1,000 ML IVC ONE ×3 (18:07→21:51)
--- NOTE | 2018-04-04 18:09 | Emergency Department Note ---
Disposition Clinical Impression: Gastroenteritis, Dehydration Disposition: Admitted As Inpatient Condition: Undetermined Instructions: Dehydration (ED), Gastroenteritis (ED), Acute Diarrhea (ED) Referrals: NONE,PCP [Primary Care Provider] - Forms: ED Satisfaction Letter Time of Disposition: 19:50 (Dr Roldan accepted pt) Nausea/Vomiting/Diarrhea HPI - General Chief complaint: ED Nausea/Vomiting/Diarrhea Stated complaint: Nausea and vomiting for three days Time Seen by Provider: 04/04/18 17:40 Source: patient Limitations: no limitations Nursing Notes Reviewed: Yes Vital Signs Reviewed: Yes - History of Present Illness HPI Narrative: Patient is a pleasant 28-year-old female with no significant PMH except for hypertension who is presenting to [facility] Emergency Room with a chief complaint off ketones of nausea vomiting and diarrhea extensively unable to keep anything in her stomach associated with weakness and generalized malaise. Patient is not a good historian but she denies taking any street drugs or other symptoms. On admission she became lethargic and almost near syncope and was told by the staff reported they give her ammonia inhalation and she responded to it. She does not have any other medical problems except hypertension. She denies any recent change in diet or eating leftover food. P atient denies any fever, chills or night sweats. Pt also denies any eye pain or visual disturbances. There is no sore throat, nasal drainages or facial congestion. There is no chest pain, palpitations or racing heart. Pt also denies any shortness of breath, cough or chest congestion. There is no abdominal pain. There is no urgency, frequency or dysuria. There is no muskulo-skeletal pain, arthralgia or back pain. Patient also denies any rash, edema or pruritus. There is no neurological manifestations, no headache, no vertigo or weakness. The patient also denies any anxiety, depression, hallucinations and has no homicidal or suicidal ideations. There is no polyuria, polydipsia or recent weight change. There is no easy bruising or bleeding. Review of other systems is otherwise negative except above. Pt Subjective Complaint: nausea, vomiting, diarrhea Onset (ago): day(s) (3) Description of emesis: food contents Description of Diarrhea: water - Related Data Home Medications Medication Instructions Recorded Confirmed Buprenorphine HCl [Subutex] 12 mg SL DAILY 02/02/18 04/04/18 DiphenhydraMINE [Benadryl] 25 mg PO HS 02/02/18 04/04/18 Previous Rx's Medication Instructions Recorded Ondansetron ODT [Zofran ODT] 4 mg SL Q4HR PRN #12 tab.rapdis 02/04/18 Allergies Allergy/AdvReac Type Severity Reaction Status Date / Time cephalexin [From Keflex] Allergy Anaphylaxis Verified 04/04/18 17:11 Penicillins [PCN] Allergy Anaphylaxis Verified 04/04/18 17:11 tramadol [From Ultram] Allergy Anaphylaxis Verified 04/04/18 17:11 All systems ED: reviewed and negative except as stated. Review of Systems: As Per HPI Constitutional: Denies: fever, chills, weakness, weight change Eyes: Denies: eye pain, eye discharge, vision change ENT ED: Denies: ear pain, throat pain, dental pain, hearing loss, epistaxis, congestion, dysphagia Cardiovascular: Denies: chest pain, palpitations, dyspnea on exertion, edema, syncope Respiratory: Denies: cough, dyspnea, wheezes, hemoptysis, stridor Gastrointestinal: Reports: nausea, vomiting, diarrhea. Denies: abdominal pain, constipation, hematemesis, melena, hematochezia Genitourinary: Denies: dysuria, frequency, hematuria, discharge Musculoskeletal: Denies: back pain, neck pain, arthralgia, myalgia Integumentary: Denies: rash, abrasion, lesions Neurological: Reports: weakness. 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 - Social History Smoking Status: Current every day smoker Smokeless Tobacco Status: No Alcohol use: Reports: none Drug use: Reports: none, opiates, marijuana Physical Exam - General Limitations: no limitations General appearance: alert, in no apparent distress, lethargic, in distress - Head Head exam: atraumatic, normocephalic, normal inspection - Eye Eye exam: Present: normal appearance, PERRL, EOMI - Expanded Eye Exam Pupils: Left: reactive - ENT ENT exam: normal exam, normal oropharynx, mucous membranes dry - Expanded ENT Exam External ear exam: Present: normal external inspection Mouth exam: Present: normal external inspection Teeth exam: Present: normal inspection Throat exam: Present: normal inspection - Neck Neck exam: Present: normal inspection, full ROM, trachea midline - Chest Chest inspection: Present: normal inspection, symmetric chest wall rise - Respiratory Respiratory exam: Present: normal lung sounds bilaterally - Cardiovascular Cardiovascular exam: Present: regular rate, normal rhythm, normal heart sounds - Abdominal Exam Abdominal exam: Present: soft, tenderness. Absent: Non-Tender (From excessive vomiting ), distention, guarding, rebound, rigidity - Extremities Exam Extremities exam: Present: normal inspection, full ROM. Absent: tenderness, pedal edema - Expanded Upper Extremity Exam Shoulder exam: Present: normal inspection, full ROM Arm exam: Present: normal inspection, full ROM Elbow exam: Present: normal inspection, full ROM Forearm/Wrist exam: Present: normal inspection, full ROM Hand exam: Present: normal inspection, full ROM Vascular exam: Normal: capillary refill, radial pulse - Expanded Lower Extremity Exam Hip/Pelvis exam: Present: normal inspection, full ROM Upper leg exam: Present: normal inspection, full ROM Knee exam: Present: normal inspection, full ROM Lower leg exam: Present: normal inspection, full ROM Ankle exam: Present: normal inspection, full ROM Foot/toe exam: Present: normal inspection, full ROM Neurovascular/Tendon exam: Absent: motor deficit, sensory deficit, tendon deficit - Back Exam Back exam: Present: normal inspection, full ROM. Absent: tenderness - Neurological Exam Neurological exam: Present: alert, oriented X3 - Expanded Neurological Exam Patient oriented to: Present: person, place, time Coma Scale Eye Opening: Spontaneous Coma Scale Motor Response: Obeys Commands Coma Scale Verbal Response: Oriented Coma Scale Total: 15 - Psychiatric Psychiatric exam: Present: normal affect, normal mood - Skin Skin exam: Present: warm, dry, intact, normal color Course Vital Signs Temperature 98.1 F 04/04/18 17:13 Pulse Rate 86 04/04/18 17:13 Respiratory Rate 16 04/04/18 17:13 Blood Pressure 158/102 04/04/18 17:13 O2 Sat by Pulse Oximetry 97 04/04/18 17:13 Temperature 98.1 F 04/04/18 17:13 Pulse Rate 79 04/04/18 19:59 Respiratory Rate 16 04/04/18 19:59 Blood Pressure 156/94 04/04/18 19:59 O2 Sat by Pulse Oximetry 98 04/04/18 19:59 Oxygen Delivery Oxygen Delivery Room Air Nausea/Vomiting/Diarrhea - Differential Diagnosis Likely: gastroenteritis, drug-induced nausea and vomitting, dehydration - Medical Records Medical records reviewed: Yes I reviewed the patient's medical records. - Lab Data Lab results reviewed: Yes I reviewed the patient's lab results. Result diagrams: 04/04/18 19:24 04/04/18 18:46 Lab Results 04/04/18 04/04/18 04/04/18 Range/Units 18:46 19:05 19:05 WBC (4.3-11.1) K/mcL RBC (3.82-4.97) M/mcL Hgb (11.5-15.4) g/dL Hct (35.3-44.9) % MCV (83.0-100.0) fL MCH (28.0-33.3) pg MCHC (31.6-35.5) g/dL RDW (11.5-14.5) % Plt Count (140-400) K/mcL MPV (9.4-12.4) fL Immature Gran % (0-4) % Seg Neutrophils % % Lymphocytes % % Monocytes % % Eosinophils % % Basophils % % Neutrophils # (1.6-8.9) K/mcL Lymphocytes # (0.6-4.6) K/mcL Monocytes # (0.0-1.3) K/mcL Eosinophils # (0.0-0.6) K/mcL Basophils # (0.0-0.2) K/mcL Sodium 138 (136-145) mEq/L Potassium 4.0 (3.5-5.1) mEq/L Chloride 105 (98-107) mEq/L Carbon Dioxide 22 L (23-29) mEq/L BUN 8 (6-20) mg/dL Creatinine 0.52 L (0.60-1.20) mg/dL Est GFR ( Amer) > 60 (> 60) Est GFR (Non-Af Amer) > 60 (> 60) BUN/Creatinine Ratio 15 (6-26) Glucose 129 H (70-105) mg/dL Calculated Osmolality 286 (280-300) Calcium 9.5 (8.6-10.3) mg/dL Total Bilirubin 0.3 (0.3-1.0) mg/dL AST 13 (13-39) Units/L ALT 6 L (7-52) Units/L Alkaline Phosphatase 63 (34-104) Units/L Serum Total Protein 7.8 (6.4-8.9) g/dL Albumin 4.6 (3.5-5.7) g/dL Globulin 3.2 (2.4-3.5) g/dL Albumin/Globulin Ratio 1.4 (1.1-2.2) Urine Color Yellow (Yellow) Urine Clarity Cloudy A (Clear) Urine pH 6.5 (5.0-8.0) pH Units Ur Specific [place] >= 1.030 H (1.010-1.025) Urine Protein 100 H (Neg-Trace) mg/dL Urine Glucose (UA) Normal (Normal) mg/dL Urine Ketones 40 H (Negative) mg/dL Urine Blood Trace-intact H (Negative) Urine Nitrite Negative (Negative) Urine Bilirubin Small H (Negative) Urine Urobilinogen Normal (Normal) mg/dL Ur Leukocyte Esterase Negative (Negative) Urine Microscopic RBC 0-3 (0-3) per hpf Urine Microscopic WBC 0-3 (0-3) per hpf Ur Squamous Epith Cells Many H (None-Few) per lpf Urine Bacteria Few (None-Few) per hpf Ur Culture Indicated? NO (NO) Urine Test Negative (Negative) 04/04/18 Range/Units 19:24 WBC 16.7 H (4.3-11.1) K/mcL RBC 5.02 H (3.82-4.97) M/mcL Hgb 14.9 (11.5-15.4) g/dL Hct 43.9 (35.3-44.9) % MCV 87.5 (83.0-100.0) fL MCH 29.7 (28.0-33.3) pg MCHC 33.9 (31.6-35.5) g/dL RDW 12.1 (11.5-14.5) % Plt Count 339 (140-400) K/mcL MPV 9.2 L (9.4-12.4) fL Immature Gran % 0.4 (0-4) % Seg Neutrophils % 88.9 % Lymphocytes % 9.1 % Monocytes % 1.3 % Eosinophils % 0.1 % Basophils % 0.2 % Neutrophils # 14.9 H (1.6-8.9) K/mcL Lymphocytes # 1.5 (0.6-4.6) K/mcL Monocytes # 0.2 (0.0-1.3) K/mcL Eosinophils # 0.0 (0.0-0.6) K/mcL Basophils # 0.0 (0.0-0.2) K/mcL Sodium (136-145) mEq/L Potassium (3.5-5.1) mEq/L Chloride (98-107) mEq/L Carbon Dioxide (23-29) mEq/L BUN (6-20) mg/dL Creatinine (0.60-1.20) mg/dL Est GFR ( Amer) (> 60) Est GFR (Non-Af Amer) (> 60) BUN/Creatinine Ratio (6-26) Glucose (70-105) mg/dL Calculated Osmolality (280-300) Calcium (8.6-10.3) mg/dL Total Bilirubin (0.3-1.0) mg/dL AST (13-39) Units/L ALT (7-52) Units/L Alkaline Phosphatase (34-104) Units/L Serum Total Protein (6.4-8.9) g/dL Albumin (3.5-5.7) g/dL Globulin (2.4-3.5) g/dL Albumin/Globulin Ratio (1.1-2.2) Urine Color (Yellow) Urine Clarity (Clear) Urine pH (5.0-8.0) pH Units Ur Specific [place] (1.010-1.025) Urine Protein (Neg-Trace) mg/dL Urine Glucose (UA) (Normal) mg/dL Urine Ketones (Negative) mg/dL Urine Blood (Negative) Urine Nitrite (Negative) Urine Bilirubin (Negative) Urine Urobilinogen (Normal) mg/dL Ur Leukocyte Esterase (Negative) Urine Microscopic RBC (0-3) per hpf Urine Microscopic WBC (0-3) per hpf Ur Squamous Epith Cells (None-Few) per lpf Urine Bacteria (None-Few) per hpf Ur Culture Indicated? (NO) Urine Test (Negative)
[2018-04-04 19:10] LABS: Alanine Aminotransferase 6 Units/L (7-52); Albumin 4.6 g/dL (3.5-5.7); Albumin/Globulin Ratio 1.4 (1.1-2.2); Alkaline Phosphatase 63 Units/L (34-104); Aspartate Amino Transferase 13 Units/L (13-39); BUN/Creatinine Ratio 15 (6-26); Bilirubin,Total 0.3 mg/dL (0.3-1.0); Blood Urea Nitrogen 8 mg/dL (6-20); Calcium 9.5 mg/dL (8.6-10.3); Carbon Dioxide 22 mEq/L (23-29); Chloride 105 mEq/L (98-107); Globulin 3.2 g/dL (2.4-3.5); Glucose 129 mg/dL (70-105); Osmolality,Calculated 286 (280-300); Sodium 138 mEq/L (136-145); Total Protein 7.8 g/dL (6.4-8.9); eGFR For Non-African Americans > 60 (> 60)
[2018-04-04 19:13] LABS: Bilirubin,Urine Small (Negative); Blood,Urine Trace-intact (Negative); Clarity,Urine Cloudy (Clear); Color,Urine Yellow (Yellow); Glucose,Urine (UA) Normal (Normal); Ketones,Urine 40 mg/dL (Negative); Leukocyte Esterase,Urine Negative (Negative); Nitrite,Urine Negative (Negative); PH,Urine 6.5 pH Units (5.0-8.0); Protein,Urine 100 mg/dL (Neg-Trace); Specific Gravity,Urine >= 1.030 (1.010-1.025); Urobilinogen,Urine Normal (Normal)
[2018-04-04 19:18] LABS: Bacteria,Urine Few per hpf (None-Few); RBC,Urine 0-3 per hpf (0-3); Squamous Epithelial Cell,Urine Many per lpf (None-Few); WBC,Urine 0-3 per hpf (0-3)
[2018-04-04] MEDS ORDERED: *HR* Promethazine 25 MG/ML VIAL IVP ONE (19:18)
[2018-04-04 19:29] LABS: Basophils % 0.2 %; Eosinophils % 0.1 %; Hematocrit 43.9 % (35.3-44.9); Hemoglobin 14.9 g/dL (11.5-15.4); Immature Granulocytes % 0.4 % (0-4); Lymphocytes # 1.5 K/mcL (0.6-4.6); Lymphocytes % 9.1 %; Mean Corpuscular HGB Conc 33.9 g/dL (31.6-35.5); Mean Corpuscular Hemoglobin 29.7 pg (28.0-33.3); Mean Corpuscular Volume 87.5 fL (83.0-100.0); Mean Platelet Volume 9.2 fL (9.4-12.4); Monocytes # 0.2 K/mcL (0.0-1.3); Monocytes % 1.3 %; Neutrophils # 14.9 K/mcL (1.6-8.9); Platelet Count 339 K/mcL (140-400); Red Blood Count 5.02 M/mcL (3.82-4.97); Red Cell Distribution Width 12.1 % (11.5-14.5); Segmented Neutrophils % 88.9 %
[2018-04-04] MEDS ORDERED: Naloxone 0.4 MG/ML INJ IVP PRN ×2 (20:07→21:51)
[2018-04-04] MEDS ORDERED: 0.9 % Sodium Chloride 1,000 ML IVC SCH (20:15)
[2018-04-04] MEDS ORDERED: Pantoprazole 40 MG VIAL IVP ONE ×2 (20:18→21:51)
[2018-04-04 21:15] LABS: Amphetamine Screen,Urine Negative ng/mL (Cutoff=1000); Barbiturate Screen,Urine Negative ng/mL (Cutoff=200); Benzodiazepines Screen,Urine Negative ng/mL (Cutoff=200); Cannabinoid Screen,Urine Positive ng/mL (Cutoff = 50); Cocaine Screen,Urine Negative ng/mL (Cutoff= 300); Opiate Screen,Urine Positive ng/mL (Cutoff=300); Phencyclidine Screen,Urine Negative ng/mL (Cutoff=25)
[2018-04-04] MEDS: 0.9 % Sodium Chloride 1,000 ML IVC SCH (22:49)
[2018-04-04] MEDS: Ondansetron ODT 4 MG TAB.RAPDIS SL PRN (22:49)
[2018-04-05] MEDS: Ondansetron ODT 4 MG TAB.RAPDIS SL PRN ×2 (03:14→17:27)
[2018-04-05] MEDS: *HR* HYDROcodone/Acet 5/325 mg TABLET PO PRN ×2 (06:57→23:59)
[2018-04-05] MEDS: 0.9 % Sodium Chloride 1,000 ML IVC SCH (06:58)
[2018-04-05] MEDS: *HR* Promethazine 25 MG/ML VIAL IVP PRN ×3 (08:49→20:47)
[2018-04-05] MEDS ORDERED: *HR* Buprenorphine HCl 8 MG TAB.SUBL SL SCH (09:00)
[2018-04-05 09:15] LABS: Basophils % 0.2 %; Eosinophils % 0.1 %; Hematocrit 39.7 % (35.3-44.9); Hemoglobin 13.6 g/dL (11.5-15.4); Immature Granulocytes % 0.7 % (0-4); Lymphocytes # 2.3 K/mcL (0.6-4.6); Lymphocytes % 13.8 %; Mean Corpuscular HGB Conc 34.3 g/dL (31.6-35.5); Mean Corpuscular Hemoglobin 29.7 pg (28.0-33.3); Mean Corpuscular Volume 86.7 fL (83.0-100.0); Mean Platelet Volume 9.5 fL (9.4-12.4); Monocytes % 5.8 %; Neutrophils # 13.1 K/mcL (1.6-8.9); Platelet Count 355 K/mcL (140-400); Red Blood Count 4.58 M/mcL (3.82-4.97); Red Cell Distribution Width 12.2 % (11.5-14.5); Segmented Neutrophils % 79.4 %
[2018-04-05 10:52] LABS: BUN/Creatinine Ratio 14 (6-26); Blood Urea Nitrogen 7 mg/dL (6-20); Carbon Dioxide 26 mEq/L (23-29); Chloride 103 mEq/L (98-107); Glucose 124 mg/dL (70-105); Osmolality,Calculated 287 (280-300); Potassium 3.3 mEq/L (3.5-5.1); Sodium 139 mEq/L (136-145); eGFR For Non-African Americans > 60 (> 60)
--- NOTE | 2018-04-05 14:35 | Internal Med History&Physical ---
Date of Encounter: 04/05/18 Time of Encounter: 14:10 Assessment and Plan (1) Acute gastroenteritis Current visit: No Status: Acute She will be given IV fluids. Antiemetics will be given as needed. (2) Hypokalemia Current visit: Yes Status: Acute Potassium level today was decreased to 3.3. Supplement potassium will be given and labs rechecked in a.m. (3) Acute drug withdrawal syndrome Current visit: No Status: Acute Continue supportive care. 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 Rivas is a 28 year old female who came to emergency room stating she had diarrhea for the past week. She reports "everyone in the house was sick". She had multiple episodes of vomiting onset 4 days ago. There has been no hematemesis. She reports she has had fever up to 103.6. She came to emergency room and was evaluated and felt to have acute gastroenteritis. She was admitted to [facility] floor for ongoing care needs. She was hospitalized at [facility] approximately 2 months ago with similar symptoms. She was felt to have Subutex withdrawal with superimposed acute gastroenteritis. She reports she was terminated from her Subutex clinic approximately 2 weeks ago. She had some Subutex at home from a previous prescription but took her last dose 4 days ago. She states she took a hydrocodone pill yesterday. Her urine drug screen in emergency room tested positive for opiates and THC. GI history is pertinent otherwise for cholecystectomy 2012 and elevated LFTs during earlier this year. She denies viral hepatitis and had negative testing March 2017 for hepatitis A, B, and C. Past Med Surg Social Fam HX - Past Medical History Medical history: asthma, hypertension, other Additional medical history: PER PT ON THIS DATE STATES WAS TAKING PAIN PILLS FOR YEARS AND THEN WANTED TO STOP TAKING PAIN PILLS AND WAS PUT ON SUBUTEX OVER A YEAR AGO. Psychiatric history: anxiety - Past Surgical History Surgical History: cholecystectomy Additional surgical history: wisdom teeth removed (2013) - Social History Smoking Status: Current every day smoker Smokeless Tobacco Status: No Alcohol use: none Drug use: none, opiates, marijuana - Family History Mother Family Member Ethnicity: Non- Living Status: Still Living Hx Family Cardiac Disorders: Yes (hypertension) Hx Family Respiratory Disorders: No Hx Family Cancer: Yes Hx Family GI Disorders: No Hx Family Endocrine Disorder: No Hx Family Neuromuscular Disorders: No Hx Family Neurologic Disorders: No Hx Family HEENT Disorders: No Hx Family Autoimmune Disorders: No Internal Medicine - H&P: Meds Buprenorphine HCl [Subutex] 12 mg SL DAILY 02/02/18 [History] DiphenhydraMINE [Benadryl] 25 mg PO HS 02/02/18 [History] Ondansetron ODT [Zofran ODT] 4 mg SL Q4HR PRN #12 tab.rapdis 02/04/18 [Rx] Allergy/AdvReac Type Severity Reaction Status Date / Time cephalexin [From Keflex] Allergy Anaphylaxis Verified 04/04/18 17:11 Penicillins [PCN] Allergy Anaphylaxis Verified 04/04/18 17:11 tramadol [From Ultram] Allergy Anaphylaxis Verified 04/04/18 17:11 All Systems PM: A 10-system review of systems was performed and is negative for pertinent findings except as documented above in the HPI. Review of systems: Review of systems from her January 2018 [facility] hospitalization were reviewed and revised as below. Gen.: Her weight has minimally changed from 81.193 kg on 02/09/2018 to 78.131 kg today. Cardiovascular: She denies hypertension NM heart failure angina DVT or pulmonary embolism Respiratory: She has smoked since age 15 up to 2 packs per day. She claims a diagnosis of asthma. GI: As per history of present illness : She denies hematuria dysuria or kidney stones Neurologic: She has history of migraine headaches. She has had syncope in the past. She denies seizures. Endocrine: She denies diabetes thyroid disease or hyperlipidemia. Hematology/oncology: She denies blood disorders cancers or anemia Psychiatric: She has history of anxiety and depression and took medication from approximately age [age]. [place] skeletal: She denies arthritis gout or other bone joint or muscle disorders. - Constitutional Vitals: Temp Pulse Resp BP Pulse Ox 98.6 F 106 20 122/83 95 04/05/18 13:43 04/05/18 13:43 04/05/18 13:43 04/05/18 13:43 04/05/18 13:43 Exam: Gen.: She is a well-developed well-nourished female lying in bed who appears tearful but in no significant pain HEENT: Head is atraumatic and normocephalic. Eyes: EOMI. There is no scleral icterus. Mouth: Mucosa is moist. Neck: Supple and nontender. There is no thyromegaly or adenopathy noted. Heart: Tachycardic rate approximately 112/m Lungs: No wheezes or crackles are heard. Abdomen: Bowel sounds are diminished. Soft and nontender. No masses or guarding are noted. Extremities: There is no cyanosis edema or clubbing noted. Dorsalis pedis and posterior tibial pulses are trace to 1+ palpable bilaterally. Neurologic: Mental status: She is talkative and a good historian. Cranial nerves: Smile is symmetric. Forehead wrinkles bilaterally. Tongue protrudes midline. EOMI. Motor: There is no pronator drift. Cerebellar: Finger to nose is intact bilaterally. Skin: Warm and dry Internal Med - H&P Results - Labs CBC & Chem 7: 04/05/18 09:03 04/05/18 09:03 Labs: Short CBC 04/04/18 04/05/18 Range/Units 19:24 09:03 WBC 16.7 H 16.5 H (4.3-11.1) K/mcL Hgb 14.9 13.6 (11.5-15.4) g/dL Hct 43.9 39.7 (35.3-44.9) % Plt Count 339 355 (140-400) K/mcL Neutrophils # 14.9 H 13.1 H (1.6-8.9) K/mcL BMP 04/04/18 04/05/18 18:46 09:03 Sodium 138 139 Potassium 4.0 3.3 L Chloride 105 103 Carbon Dioxide 22 L 26 BUN 8 7 Creatinine 0.52 L 0.51 L Glucose 129 H 124 H Calcium 9.5 9.0 Liver Function 04/04/18 Range/Units 18:46 Total Bilirubin 0.3 (0.3-1.0) mg/dL AST 13 (13-39) Units/L ALT 6 L (7-52) Units/L Alkaline Phosphatase 63 (34-104) Units/L Albumin 4.6 (3.5-5.7) g/dL Urine 04/04/18 Range/Units 19:05 Urine Color Yellow (Yellow) Urine Clarity Cloudy A (Clear) Urine pH 6.5 (5.0-8.0) pH Units Ur Specific [place] >= 1.030 H (1.010-1.025) Urine Protein 100 H (Neg-Trace) mg/dL Urine Glucose (UA) Normal (Normal) mg/dL - VTE Reasons for not Prescribing Prophylaxis: Treatment not Indicated - Low risk for VTE
[2018-04-05] MEDS: 0.9 % Sodium Chloride w KCl 20 MEQ/1,000 ML MLS IVC SCH (15:45)
[2018-04-05] MEDS: Acetaminophen 325 MG TABLET PO PRN (17:11)
[2018-04-05] MEDS ORDERED: *HR* Buprenorphine HCl 2 MG SUBLINGUAL TABLET SL SCH (21:00)
[2018-04-06] MEDS: *HR* Promethazine 25 MG/ML VIAL IVP PRN ×5 (01:13→21:01)
[2018-04-06] MEDS: 0.9 % Sodium Chloride w KCl 20 MEQ/1,000 ML MLS IVC SCH ×3 (01:19→16:10)
[2018-04-06] MEDS: Ondansetron ODT 4 MG TAB.RAPDIS SL PRN ×4 (04:05→19:24)
[2018-04-06 07:58] LABS: BUN/Creatinine Ratio 17 (6-26); Blood Urea Nitrogen 8 mg/dL (6-20); Calcium 8.8 mg/dL (8.6-10.3); Carbon Dioxide 21 mEq/L (23-29); Chloride 105 mEq/L (98-107); Glucose 126 mg/dL (70-105); Magnesium 1.8 mg/dL (1.6-2.6); Osmolality,Calculated 284 (280-300); Phosphorous 2.5 mg/dL (2.7-4.5); Potassium 3.8 mEq/L (3.5-5.1); Sodium 137 mEq/L (136-145); eGFR For Non-African Americans > 60 (> 60)
[2018-04-06 10:05] LABS: Basophils % 0.3 %; Hemoglobin 13.4 g/dL (11.5-15.4); Immature Granulocytes % 0.5 % (0-4); Lymphocytes # 2.2 K/mcL (0.6-4.6); Lymphocytes % 14.7 %; Mean Corpuscular HGB Conc 34.4 g/dL (31.6-35.5); Mean Corpuscular Hemoglobin 29.6 pg (28.0-33.3); Mean Corpuscular Volume 86.3 fL (83.0-100.0); Mean Platelet Volume 9.4 fL (9.4-12.4); Monocytes # 0.5 K/mcL (0.0-1.3); Monocytes % 3.4 %; Platelet Count 322 K/mcL (140-400); Red Blood Count 4.52 M/mcL (3.82-4.97); Red Cell Distribution Width 11.9 % (11.5-14.5); Segmented Neutrophils % 81.1 %
--- NOTE | 2018-04-06 10:51 | Internal Med Progress Note ---
Date of Encounter: 04/06/18 Time of Encounter: 10:24 - Assessment and plan (1) Acute gastroenteritis Current Visit: No Status: Acute Assessment and plan: April 06. Continue IV fluids and antibiotics. (2) Hypokalemia Current Visit: Yes Status: Acute Assessment and plan: April 06. Potassium normal at 3.8. Continue present regimen. Recheck labs in a.m. (3) Acute drug withdrawal syndrome Current Visit: No Status: Acute Assessment and plan: April 06. 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 She has no new complaints. She said reports she is still frequently vomiting. - Constitutional Vitals: Temp Pulse Resp BP Pulse Ox 98.5 F 77 20 172/110 98 04/06/18 07:00 04/06/18 07:00 04/06/18 07:00 04/06/18 07:00 04/06/18 07:00 Exam: She is resting in bed but does not appear in significant pain. I reviewed her medications and lab results. Internal Medicine: Result - Labs CBC & Chem 7: 04/06/18 09:55 04/06/18 07:35 Labs: Short CBC 04/06/18 Range/Units 09:55 WBC 14.8 H (4.3-11.1) K/mcL Hgb 13.4 (11.5-15.4) g/dL Hct 39.0 (35.3-44.9) % Plt Count 322 (140-400) K/mcL Neutrophils # 12.0 H (1.6-8.9) K/mcL BMP 04/05/18 04/06/18 09:03 07:35 Sodium 139 137 Potassium 3.3 L 3.8 Chloride 103 105 Carbon Dioxide 26 21 L BUN 7 8 Creatinine 0.51 L 0.48 L Glucose 124 H 126 H Calcium 9.0 8.8 - VTE Reasons for not Prescribing Prophylaxis: Treatment not Indicated - Low risk for VTE Consult Discharge Plan - Plan Referrals: NONE,PCP [Primary Care Provider] - 1 week
[2018-04-06] MEDS: *HR* HYDROcodone/Acet 5/325 mg TABLET PO PRN (19:24)
[2018-04-07] MEDS: 0.9 % Sodium Chloride w KCl 20 MEQ/1,000 ML MLS IVC SCH ×2 (00:15→08:18)
[2018-04-07] MEDS: *HR* Promethazine 25 MG/ML VIAL IVP PRN ×5 (02:43→20:52)
[2018-04-07] MEDS: *HR* HYDROcodone/Acet 5/325 mg TABLET PO PRN ×4 (03:50→21:16)
[2018-04-07] MEDS: Ondansetron ODT 4 MG TAB.RAPDIS SL PRN ×4 (03:51→23:06)
[2018-04-07 06:41] LABS: Basophils % 0.3 %; Eosinophils # 0.1 K/mcL (0.0-0.6); Eosinophils % 0.4 %; Hematocrit 40.5 % (35.3-44.9); Immature Granulocytes % 0.2 % (0-4); Lymphocytes # 2.6 K/mcL (0.6-4.6); Lymphocytes % 19.9 %; Mean Corpuscular HGB Conc 34.6 g/dL (31.6-35.5); Mean Corpuscular Hemoglobin 29.4 pg (28.0-33.3); Mean Corpuscular Volume 85.1 fL (83.0-100.0); Mean Platelet Volume 9.6 fL (9.4-12.4); Monocytes % 7.6 %; Neutrophils # 9.2 K/mcL (1.6-8.9); Platelet Count 311 K/mcL (140-400); Red Blood Count 4.76 M/mcL (3.82-4.97); Red Cell Distribution Width 11.7 % (11.5-14.5); Segmented Neutrophils % 71.6 %
[2018-04-07 07:24] LABS: BUN/Creatinine Ratio 16 (6-26); Blood Urea Nitrogen 7 mg/dL (6-20); Calcium 9.3 mg/dL (8.6-10.3); Carbon Dioxide 25 mEq/L (23-29); Chloride 101 mEq/L (98-107); Glucose 103 mg/dL (70-105); Osmolality,Calculated 280 (280-300); Potassium 3.4 mEq/L (3.5-5.1); Sodium 136 mEq/L (136-145); eGFR For Non-African Americans > 60 (> 60)
[2018-04-07] MEDS: Sucralfate 1 GM TABLET PO SCH ×2 (08:06→19:23)
--- NOTE | 2018-04-07 10:53 | Internal Med Progress Note ---
Date of Encounter: 04/07/18 Time of Encounter: 10:25 - Assessment and plan (1) Acute gastroenteritis Current Visit: No Status: Acute Assessment and plan: April 06. Continue IV fluids and anti-emetics. April 07. WBC has improved further. Continue present management. Anticipate discharge home in 1-2 days. (2) Hypokalemia Current Visit: Yes Status: Acute Assessment and plan: April 06. Potassium normal at 3.8. Continue present regimen. Recheck labs in a.m. April 07. Potassium level slightly decreased at 3.4. Increase potassium supplementation. Recheck labs in a.m. (3) Acute drug withdrawal syndrome Current Visit: No Status: Acute Assessment and plan: April 06. 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 She has no new complaints. She said reports she is still frequently vomiting. April 07. She states she feels she is having "contractions" with back pain. She still reports she is vomiting frequently. - Constitutional Vitals: Temp Pulse Resp BP Pulse Ox 98.6 F 82 16 172/108 97 04/07/18 08:21 04/07/18 08:21 04/07/18 08:21 04/07/18 08:21 04/07/18 08:21 Exam: She is lying in bed and appears in slight discomfort. Abdomen shows diminished bowel sounds. It is nontender to palpation with no masses or guarding. Heart is regular without murmurs gallops or ectopics. I reviewed her medications and lab results. Internal Medicine: Result - Labs CBC & Chem 7: 04/07/18 06:02 04/07/18 06:02 Labs: Short CBC 04/07/18 Range/Units 06:02 WBC 12.8 H (4.3-11.1) K/mcL Hgb 14.0 (11.5-15.4) g/dL Hct 40.5 (35.3-44.9) % Plt Count 311 (140-400) K/mcL Neutrophils # 9.2 H (1.6-8.9) K/mcL BMP 04/07/18 06:02 Sodium 136 Potassium 3.4 L Chloride 101 Carbon Dioxide 25 BUN 7 Creatinine 0.43 L Glucose 103 Calcium 9.3 - VTE Reasons for not Prescribing Prophylaxis: Treatment not Indicated - Low risk for VTE Consult Discharge Plan - Plan Referrals: NONE,PCP [Primary Care Provider] - 1 week
[2018-04-07] MEDS: Acetaminophen 325 MG TABLET PO PRN (22:26)
[2018-04-08] MEDS: *HR* Promethazine 25 MG/ML VIAL IVP PRN ×4 (01:11→13:20)
[2018-04-08] MEDS: *HR* HYDROcodone/Acet 5/325 mg TABLET PO PRN ×4 (01:11→11:17)
[2018-04-08] MEDS ORDERED: 0.9 % Sodium Chloride w KCl 20 MEQ/1,000 ML MLS IVC SCH (02:45)
[2018-04-08] MEDS: Ondansetron ODT 4 MG TAB.RAPDIS SL PRN ×2 (04:27→11:17)
[2018-04-08 06:19] LABS: Basophils % 0.3 %; Eosinophils # 0.1 K/mcL (0.0-0.6); Eosinophils % 0.7 %; Hematocrit 43.1 % (35.3-44.9); Hemoglobin 15.2 g/dL (11.5-15.4); Immature Granulocytes % 0.4 % (0-4); Lymphocytes % 20.4 %; Mean Corpuscular HGB Conc 35.3 g/dL (31.6-35.5); Mean Corpuscular Hemoglobin 29.6 pg (28.0-33.3); Mean Corpuscular Volume 83.9 fL (83.0-100.0); Mean Platelet Volume 9.5 fL (9.4-12.4); Monocytes # 1.2 K/mcL (0.0-1.3); Monocytes % 7.8 %; Neutrophils # 10.4 K/mcL (1.6-8.9); Platelet Count 310 K/mcL (140-400); Red Blood Count 5.14 M/mcL (3.82-4.97); Red Cell Distribution Width 11.7 % (11.5-14.5); Segmented Neutrophils % 70.4 %
[2018-04-08 06:47] LABS: BUN/Creatinine Ratio 22 (6-26); Blood Urea Nitrogen 10 mg/dL (6-20); Calcium 9.5 mg/dL (8.6-10.3); Carbon Dioxide 25 mEq/L (23-29); Chloride 100 mEq/L (98-107); Glucose 104 mg/dL (70-105); Osmolality,Calculated 285 (280-300); Potassium 3.7 mEq/L (3.5-5.1); Sodium 138 mEq/L (136-145); eGFR For Non-African Americans > 60 (> 60)
[2018-04-08 07:46] VITALS: BP 169/112
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
== END 2018-04-08 13:30 | disposition other institution (70) ==
LOC: EMEROOPIK 17:11 → INPPIK 17:11
PROVIDERS: ADMIT Internal Medicine; ATTEND Internal Medicine